=== PATIENT | male | born 1990 | race American Indian/Alaskan Native ===

== ENCOUNTER 2018-01-01 16:15 | Emergency (ER) | payer BC ==
--- NOTE | 2018-01-01 16:46 | C.PDOC ---
History Of Present Illness 27 y/o male presents to ED complaining of persistent left-sided chest pain and back pain x3 days. Patient states pain is localized and worsens with coughing, laughing, and when he tries to sit upright. Denies any fever, SOB/WOODALL, trauma, or other associated symptoms. Patient states he smokes every 2 weeks but denies asthma. Limited improvement with NSAID. PERSIST L CP/BACK PAIN X 3 DAYS. LOCALIZED WORSE WHEN TRIES TO SIT UPRIGHT, LAUGHING AND COUGHING. NO FEVER, SOB/WOODALL, TRAUMA OTHER ASSOC SX. PS SMOKES EVER 2 WEEKS. DENIES ASTHMA. LIMITED IPMROVE W NSAID EXAM NAD NONTOXIC LUNGS CTA B/L NO W/R/R +PLEURITIC PAIN CHEST WALL +TEND L PECTORAL AREA NO SWELL CREPITUS W REPRODUC PAIN CV RRR REMAINDER NEG Time Seen by Provider: 01/01/18 16:35 Chief Complaint (Nursing): Chest Pain History Per: Patient History/Exam Limitations: no limitations Onset/Duration Of Symptoms: Days Current Symptoms Are (Timing): Still Present Past Medical History Reviewed: Historical Data, Nursing Documentation, Vital Signs Vital Signs: Last Vital Signs Temp 98.4 F 01/01/18 16:17 Pulse 80 01/01/18 16:17 Resp 20 01/01/18 16:17 BP 137/74 01/01/18 16:17 Pulse Ox 99 01/01/18 16:17 Family History: States: No Known Family Hx - Social History Hx Alcohol Use: Yes Hx Substance Use: No - Immunization History Hx Tetanus Toxoid Vaccination: No Hx Influenza Vaccination: No Hx Pneumococcal Vaccination: No Review Of Systems Except As Marked, All Systems Reviewed And Found Negative. Constitutional: Negative for: Fever, Chills Cardiovascular: Positive for: Chest Pain (left-sided) Respiratory: Negative for: Shortness of Breath, SOB with Excertion, Wheezing Gastrointestinal: Negative for: Nausea, Vomiting Musculoskeletal: Positive for: Back Pain Neurological: Negative for: Weakness, Numbness Physical Exam - Physical Exam Appears: Non-toxic, No Acute Distress Skin: Warm, Dry Head: Atraumatic Eye(s): bilateral: Normal Inspection Oral Mucosa: Moist Chest: Tenderness (to left pectoral area; no swelling), Other (crepitus with reproducible chest pain) Cardiovascular: Rhythm Regular, No Murmur Respiratory: Normal Breath Sounds, No Rales, No Rhonchi, No Wheezing, Other (Positive pleuritic pain; clear to auscultation bilaterally) Neurological/Psych: Oriented x3, Normal Speech Gait: Steady ED Course And Treatment - Laboratory Results Result Diagrams: 01/01/18 17:29 01/01/18 17:29 ECG: Interpreted By Me ECG Rhythm: Sinus Rhythm ECG Interpretation: Normal Rate From EC O2 Sat by Pulse Oximetry: 99 (RA) Pulse Ox Interpretation: Normal - Radiology CXR: Interpreted by Me CXR Interpretation: Yes: No Acute Disease Reevaluation Time: 18:02 Reassessment Condition: Improved Medical Decision Making Medical Decision Making: Plan: --EKG --Labs --Chest X-Ray --Flexeril --Lidoderm --Toradol Disposition Counseled Patient/Family Regarding: Studies Performed, Diagnosis, Need For Followup, Rx Given - Disposition Referrals: YOUR,PMD [Other] Disposition: HOME/ ROUTINE Disposition Time: 18:02 Condition: IMPROVED Additional Instructions: APPLY PATCH TO AFFECTED AREA. MAX 3 PATCHES AT A TIME. REMOVE PATCH 12 HOURS AFTER INITIAL APPLICATION. ALTERNATE 12 HOURS ON, 12 HOURS OFF. Prescriptions: Acetaminophen [Tylenol Extra Strength] 2 tab PO Q6 #30 tablet Cyclobenzaprine [Flexeril] 10 mg PO TID #15 tab Ibuprofen [Motrin] 600 mg PO Q6 #30 tab Lidocaine 5% [Lidoderm] 1 ea TD PRN PRN #10 patch PRN Reason: Pain, Moderate (4-7) Instructions: Costochondritis (DC) Forms: [facility] (Yakut), Work Excuse - Clinical Impression Clinical Impression: Chest wall pain - Scribe Statement The provider has reviewed the documentation as recorded by the Melissa Alvarado Provider Attestation: All medical record entries made by the Alyseibe were at my direction and personally dictated by me. I have reviewed the chart and agree that the record accurately reflects my personal performance of the history, physical exam, medical decision making, and the department course for this patient. I have also personally directed, reviewed, and agree with the discharge instructions and disposition.
[2018-01-01] MEDS ORDERED: Lidocaine 5% Patch TD STA (16:47)
[2018-01-01] MEDS ORDERED: Lidocaine 5% Patch TD ONE (17:08)
[2018-01-01 17:33] LABS: BASO # 0.1 K/uL (0.0-0.2); BASO % 0.8 % (0.0-2.0); EOS # 0.2 K/uL (0.0-0.7); EOS % 1.7 % (0.0-4.0); HEMOGLOBIN 15.4 g/dL (12.0-18.0); LYMPH # 1.7 K/uL (1.0-4.3); LYMPH % 14.8 % (20.0-40.0); MEAN CELL VOLUME 79.9 fL (80.0-94.0); MEAN CORPUSCULAR HEMOGLOBIN 25.9 pg (27.0-31.0); MEAN CORPUSCULAR HGB CONC 32.5 g/dL (33.0-37.0); MEAN PLATELET VOLUME 8.1 fL (7.2-11.7); MONO # 1.4 K/uL (0.0-0.8); MONO % 11.7 % (0.0-10.0); NEUT # 8.3 K/uL (1.8-7.0); NRBC % 0.1 % (0.0-2.0); RBC 5.92 Mil/uL (4.40-5.90); WHITE BLOOD COUNT 11.6 K/uL (4.8-10.8)
--- NOTE | 2018-01-01 17:34 | RAD ---
Date of service: 01/01/2018 HISTORY: chest pain COMPARISON: No prior. TECHNIQUE: Chest PA and lateral FINDINGS: LUNGS: No active pulmonary disease. PLEURA: No significant pleural effusion identified. No pneumothorax apparent. CARDIOVASCULAR: No aortic atherosclerotic calcification present. Normal cardiac size. No pulmonary vascular congestion. OSSEOUS STRUCTURES: No significant abnormalities. VISUALIZED UPPER ABDOMEN: Normal. OTHER FINDINGS: None. IMPRESSION: No active disease.
[2018-01-01 17:49] LABS: BLOOD UREA NITROGEN 17 mg/dL (9-20); CALCIUM 9.5 mg/dl (8.6-10.4); GFR NON-AFRICAN AMERICAN > 60
[2018-01-01 18:21] VITALS: BP 138/83; PULSE 70; RESP 18; TEMP 97.9; O2SAT 100
--- NOTE | 2018-01-02 12:46 | CARD ---
APPROVED REPORT Date of service: 01/01/2018 EKG Measurement Heart [id number] <Conclusion> Normal sinus rhythm with sinus arrhythmia Normal ECG
== END 2018-01-01 18:20 | disposition home or self-care (01) ==
LOC: C.ER 16:15
DX: R07.89 Other chest pain (principal)
CPT/HCPCS: 71046; 80048; 84484; 85025; 93005; 96374; 99284; J1885